=== PATIENT | male | born 1965 | race Caucasian/White ===

== ENCOUNTER 2018-05-24 10:36 | Day surgery (SDC) | payer OTHER ==
[~2018-05-24 10:36] MED LIST: VASOTEC20 MG PO
== END 2018-05-24 19:40 | disposition home or self-care (01) ==
LOC: CIR.AMB 10:36
DX: K40.90 Unilateral inguinal hernia, without obstruction or gangrene, not specified as recurrent (principal); R33.8 Other retention of urine; N99.89 Other postprocedural complications and disorders of genitourinary system; T88.59XA Other complications of anesthesia, initial encounter; T41.3X5A Adverse effect of local anesthetics, initial encounter; Y92.238 Other place in hospital as the place of occurrence of the external cause